=== PATIENT | female | born 1950 | race Caucasian/White ===

== ENCOUNTER 2018-04-18 12:41 | Emergency (ER) | payer MEDICARE ==
[2018-04-18] MEDS ORDERED: Ondansetron HCl/PF 4 MG/2 ML Vial ONE (12:50)
[2018-04-18] MEDS ORDERED: Fentanyl 100 MCG/2 ML VIAL ONE ×2 (12:50→13:20)
[2018-04-18] MEDS ORDERED: Lidocaine 1% (PF) 30 ML VIAL ONE (13:10)
[2018-04-18] MEDS ORDERED: Lidocaine 1% 20 ML MDV ONE (13:11)
== END 2018-04-18 14:21 | disposition home or self-care (01) ==
LOC: MADERS 12:41
DX: M25.461 Effusion, right knee (principal); Z79.891 Long term (current) use of opiate analgesic
CPT/HCPCS: 87070; 87205; 96374; 96375; J2001; J2405; J3010